=== PATIENT | female | born 1995 | race Two or more races ===

== ENCOUNTER 2024-01-04 11:09 | Emergency (ER) | payer OTHER ==
[~2024-01-04] VITALS: Ht 170.2 cm; Wt 59.0 kg
[2024-01-04] MEDS ORDERED: KETOROLAC TROMETHAMINE 60 MG VIAL IM STA (12:48)
[2024-01-04] MEDS ORDERED: KETOROLAC TROMETHAMINE 60 MG VIAL IM ONE (13:03)
[2024-01-04 13:25] LABS: HEMATOCRIT 40.5 % (36.0-45.00); HEMOGLOBIN 13.8 g/dL (12.0-15.00); MEAN CELL VOLUME 91.6 fL (80.00-100.00); MEAN CORPUSCULAR HEMOGLOBIN 31.1 pg (27.00-32.0); MEAN CORPUSCULAR HGB CONC 33.9 g/dl (32.0-36.0); PLATELET COUNT 231 K/uL (150-450); RED BLOOD COUNT 4.42 M/uL (4.00-6.00); RED CELL DISTRIBUTION WIDTH 12.6 % (11.5-14.5)
[2024-01-04 14:13] LABS: CALCIUM 8.8 mg/dL (8.5-10.1); CREATININE SERUM 0.81 mg/dL (0.55-1.02); GFR 85.47; POTASSIUM 3.52 mEq/L (3.5-5.1)
== END 2024-01-04 16:12 | disposition home or self-care (01) ==
LOC: ER 11:09
PROVIDERS: General Practice
DX: F41.9 Anxiety disorder, unspecified (principal); R07.89 Other chest pain